=== PATIENT | female | born 1960 | race Caucasian/White ===

== ENCOUNTER 2019-06-06 06:57 | Emergency (ER) | payer OTHER ==
[~2019-06-06] VITALS: Ht 172.7 cm; Wt 90.0 kg
[~2019-06-06 06:57] MED LIST: BACTDS PO; CLIN150C17 PO; HYDR-4011 PO; IBUP-1542 PO; NAPR-688 ORAL; NORT10CA2 ORAL; NORT50CA ORAL; PRED50TA PO; SUMA100T4 ORAL
[2019-06-06 07:06] VITALS: Ht 172.7 cm; Wt 90.0 kg
[2019-06-06] MEDS ORDERED: morphine 4 MG/ML VIAL IV STA ×2 (07:09→07:56)
[2019-06-06 08:59] VITALS: BP 134/67; PULSE 96; RESP 20
== END 2019-06-06 08:59 | disposition home or self-care (01) ==
LOC: E/R 06:57
DX: M25.552 Pain in left hip (principal); J45.909 Unspecified asthma, uncomplicated
CPT/HCPCS: 72170; 72192; 73510; 96374; 96376; J2270; Z7502; 73502